=== PATIENT | male | born 1990 | race Caucasian/White ===

== ENCOUNTER 2018-03-25 01:51 | Emergency (ER) | payer SELFPAY ==
--- NOTE | 2018-03-25 01:51 | DT_ITS ---
This patient was seen during an EMR downtime March 24, 2018 - March 31, 2018. This patient may have a combination of paper and electronic documentation or all paper documentation. All documentation is viewable within the e-chart portion of [facility] for each patient visit.
== END 2018-03-25 03:31 | disposition home or self-care (01) ==
LOC: ED 03-26 16:37
PROVIDERS: Emergency Provider Emergency Medicine
DX: T40.1X1A Poisoning by heroin, accidental (unintentional), initial encounter (principal); Y92.9 Unspecified place or not applicable; F17.210 Nicotine dependence, cigarettes, uncomplicated; F12.90 Cannabis use, unspecified, uncomplicated
CPT/HCPCS: 36415; 96372; 99283; J7030; A4216; J2405

== ENCOUNTER 2018-10-17 01:29 | Emergency (ER) | payer MEDICAID, SELFPAY ==
[2018-10-17 01:31] VITALS: BP 149/75; PULSE 91; RESP 16; TEMP 36.9; O2SAT 98; BMI 24.5
--- NOTE | 2018-10-17 01:57 | US_ITS ---
HISTORY: RIGHT TESTICULAR SWELLING AND PAINRIGHT GROIN PAIN TECHNIQUE: Realtime ultrasound of the testicles was performed with grayscale, Color Doppler and spectral Doppler analysis. COMPARISON: None FINDINGS: The right and left testicles show normal size and echogenicity. Bilateral testicular blood flow without torsion. The right testicle measures approximately 4 x 3.2 x 2.8 cm the left testicle measures 3.8 x 2.7 x 2.3 cm. Small right-sided hydrocele. The right epididymal tail appears enlarged and shows asymmetric vascular flow and apparent hyperemia suspicious for epididymitis. The right and left epididymal head regions are not enlarged. Moderate left varicocele with dilated veins measuring up to 4 mm in diameter with Valsalva. Bilateral mild scrotal skin thickening measuring 5 mm in diameter. The right inguinal canal and spermatic cord region shows asymmetric increased vascularity with possible hyperemia but nonspecific. No definite inguinal hernia. US/Testicular with Arterial Flow IMPRESSION: 1. Normal testicles. No testicular torsion. 2. Right epididymal tail hyperemia and enlargement suspicious for epididymitis. Small right hydrocele. 3. Moderate left varicocele. 4. Bilateral mild scrotal skin thickening/edema. at 0426 Reported and signed by: Ralph Martinez MD Electronically Signed: Ralph Martinez, at 4:25 EST Tel , Service support ,
[2018-10-17] MEDS: Naproxen 500 MG Tablet PO (02:13)
[2018-10-17] MEDS: Azithromycin 250 MG Tablet 1000 MG PO (02:13)
[2018-10-17] MEDS: Ceftriaxone 500 MG Vial 250 MG IM (02:14)
[2018-10-17 02:26] LABS: Mucous, Urine 0 SEEN /hpf (<or=2+); Squamous Epithelial Cells - UA 0 SEEN /hpf (0-5)
[2018-10-17 02:37] LABS: Color, Urine Straw (Yellow); Glucose, Dipstick Normal (Normal); Ketone-Dipstick Negative (Negative); Leukocyte Esterase-Dipstick 500 /ul (Negative); Nitrite-Dipstick Negative (Negative); Occult Blood-Urine 50 /ul (Negative); Protein-Dipstick 30 mg/dl (Negative); Specific Gravity, Urine 1.005 (1.002-1.030); Urine Bilirubin Dipstick Negative (Negative); Urine Clarity Sl. Cloudy (Clear); Urine Urobilinogen Normal (Normal)
[2018-10-17 02:46] LABS: Bacteria RARE /hpf (None Seen); Red Blood Cells-Urine 0-5 SEEN /hpf (0-5); White Blood Cells 50-100 SEEN /hpf (0-5)
--- NOTE | 2018-10-17 03:34 | ED.VIS.GEN ---
History of Present Illness Chief Complaint: Complaint Informant: Patient Onset: Today Context: Gradual Onset Timing: Continuous Quality: pain/ache Location: R groin Current Severity: Severe Maximum Severity: Severe Worsened by: manipulation of right testicle, sexual intercourse JPTA Relieved by: nothing Associated Symptoms: no urinary sx. n/v x 1 BANKING CONSULTANT. Narrative: Patient had gradual onset of right testicular pain after initially feeling discomfort in his right groin earlier today. It suddenly got worse upon engaging in intercourse. The pain does not radiate into his back. His right testicle/scrotum is red and swollen. He has been obvious with his significant other, and neither has a history of GC or chlamydia that they know of. He denies any systemic symptoms other than the nausea/vomiting. Past Medical History - Allergies and Home Meds Allergies/Adverse Reactions: Allergies No Known Allergies Allergy (Verified 10/17/18 01:31) Primary Care Physician: Care Physician,No Primary [Primary Care Provider] - Past Medical History: None Lives: Spouse/ Significant Other Smoking Status: Current every day smoker Review of Systems General: Denies: Chills, Fever Respiratory: Denies: Dyspnea, Cough Gastrointestinal: Reports: Abdominal pain, Nausea, Vomiting. Denies: Diarrhea, Melena, Hematochezia Genitourinary: Reports: - - Right testicular pain/swelling/redness. Denies: Dysuria, Hematuria, Frequency Musculoskeletal: Denies: Neck pain, Back pain Skin: Denies: Rash, Abrasions, Wounds Neurological: Denies: Headache, Weakness, Numbness Physical Exam Vital Signs/Narrative: Vital Signs Temp Pulse Resp BP Pulse Ox 10/17/18 01:31 98.4 F 91 16 149/75 H 98 Inital Vital Signs reviewed: Yes General: Well nourished, Well developed, - - NAD Head: Normocephalic, Atraumatic Eyes: Perrl, EOMI ENT: Moist mucous membranes, No rhinorrhea Abdomen: Soft, Nondistended, Normal bowel sounds, Tender - Mild right lower quadrant into right inguinal area. No hernia palpable.. Negative for: Guarding, Rebound tenderness : Swollen, diffusely tender right testicle. Intact cremasterics. Back: Nontender, Normal Inspection. Negative for: CVA tenderness Extremities: Nontender, No edema Skin: Normal color, No rash, - - Right hemiscrotum erythematous Neurological: Alert, Oriented x3, Cranial nerves II-XII grossly intact, Normal Strength, Normal Sensation Psychological: Normal affect Diagnostic/Tx/Re-eval Impressions Testicular Ultrasound 10/17/18 01:57 IMPRESSION: 1. Normal testicles. No testicular torsion. 2. Right epididymal tail hyperemia and enlargement suspicious for epididymitis. Small right hydrocele. 3. Moderate left varicocele. 4. Bilateral mild scrotal skin thickening/edema. at 0426 Reported and signed by: Ralph Martinez MD Electronically Signed: Ralph Martinez, at 4:25 EST Tel , Service support , 10/17/18 01:57 US Testicular [Testicular with Arterial Flow] [US] Stat Laboratory Results 10/17/18 10/17/18 02:20 02:20 Urine Color Straw Urine Clarity Sl. Cloudy Urine pH 7.0 Ur Specific [place] 1.005 Urine Protein 30 H Urine Glucose (UA) Normal Urine Ketones Negative Urine Occult Blood 50 H Urine Nitrite Negative Urine Bilirubin Negative Urine Urobilinogen Normal Ur Leukocyte Esterase 500 H Urine RBC 0-5 SEEN Urine WBC 50-100 SEEN Ur Squamous Epith Cells 0 SEEN Urine Bacteria RARE Urine Mucus 0 SEEN Chlam trachomat DNA PCR POSITIVE H N.gonorrhoeae DNA (PCR) Negative - Medical Decision Making Given the acute onset of pain and the feeling of a pop in his right testicle, I initially attempted to detorse the right testicle using the usual open-book technique, although the lie appeared in normal and symmetric. This did not result in any relief, and actually was more painful. Therefore, ultrasound was called in emergently to obtain an ultrasound to rule out torsion. His urinalysis shows pyuria, GC and chlamydia were sent and he was treated empirically for them with IM Rocephin to 50 mg and azithromycin 1 g orally. Ultrasound returned showing a normal testicle and no evidence of torsion, however he has right epididymitis. Also seen incidentally R hydroceles on both sides, small on the right, moderate on the left. I do not think he is having symptoms from these. Incidentally, the patient was here long enough that his GC and Chlamydia testing came back showing that he is positive for chlamydia and negative for gonorrhea. I discussed this with him, will additionally prescribe doxycycline since a azithromycin may not cover for epididymitis. He and his significant other both expressed concern. I reassured him that treatment should result in a negative carrier state, but that she should also get tested and I offered for her to sign in and have both testing and treatment here. She declines at this time. ED Disposition - Plan for ED Patient: Disposition: Home or Assisted Living Chief Complaint: Complaint Diagnosis: Epididymitis, right, Chlamydia Instructions: Chlamydia, ED Epididymitis Prescriptions: Doxycycline Hyclate 100 mg PO BID #14 cap Referrals: Lopez Zuniga, [STAFF PHYSICIAN] - 3-5 Days if not improving
--- NOTE | 2018-10-17 03:38 | ED.DCSUM_ITS ---
History of Present Illness Chief Complaint: Complaint Informant: Patient Onset: Today Context: Gradual Onset Timing: Continuous Quality: pain/ache Location: R groin Current Severity: Severe Maximum Severity: Severe Worsened by: manipulation of right testicle, sexual intercourse JPTA Relieved by: nothing Associated Symptoms: no urinary sx. n/v x 1 OFFICE MACHINE TECHNICIAN. Narrative: Patient had gradual onset of right testicular pain after initially feeling di scomfort in his right groin earlier today. It suddenly got worse upon engaging in intercourse. The pain does not radiate into his back. His right testicle/scrotum is red and swollen. He has been obvious with his significant other, and neither has a history of GC or chlamydia that they know of. He denies any systemic symptoms other than the nausea/vomiting. Past Medical History - Allergies and Home Meds Allergies/Adverse Reactions: Allergies No Known Allergies Allergy (Verified 10/17/18 01:31) Primary Care Physician: Care Physician,No Primary [Primary Care Provider] - Past Medical History: None Lives: Spouse/ Significant Other Smoking Status: Current every day smoker Review of Systems General: Denies: Chills, Fever Respiratory: Denies: Dyspnea, Cough Gastrointestinal: Reports: Abdominal pain, Nausea, Vomiting. Denies: Diarrhea, Melena, Hematochezia Genitourinary: Reports: - - Right testicular pain/swelling/redness. Denies: Dysuria, Hematuria, Frequency Musculoskeletal: Denies: Neck pain, Back pain Skin: Denies: Rash, Abrasions, Wounds Neurological: Denies: Headache, Weakness, Numbness Physical Exam Vital Signs/Narrative: Vital Signs Temp Pulse Resp BP Pulse Ox 10/17/18 01:31 98.4 F 91 16 149/75 H 98 Inital Vital Signs reviewed: Yes General: Well nourished, Well developed, - - NAD Head: Normocephalic, Atraumatic Eyes: Perrl, EOMI ENT: Moist mucous membranes, No rhinorrhea Abdomen: Soft, Nondistended, Normal bowel sounds, Tender - Mild right lower quadrant into right inguinal area. No hernia palpable.. Negative for: Guarding, Rebound tenderness : Swollen, diffusely tender right testicle. Intact cremasterics. Back: Nontender, Normal Inspection. Negative for: CVA tenderness Extremities: Nontender, No edema Skin: Normal color, No rash, - - Right hemiscrotum erythematous Neurological: Alert, Oriented x3, Cranial nerves II-XII grossly intact, Normal Strength, Normal Sensation Psychological: Normal affect Diagnostic/Tx/Re-eval Impressions Testicular Ultrasound 10/17/18 01:57 IMPRESSION: 1. Normal testicles. No testicular torsion. 2. Right epididymal tail hyperemia and enlargement suspicious for epididymitis. Small right hydrocele. 3. Moderate left varicocele. 4. Bilateral mild scrotal skin thickening/edema. at 0426 Reported and signed by: Ralph Martinez MD Electronically Signed: Ralph Martinez, at 4:25 EST Tel , Service support , 10/17/18 01:57 US Testicular [Testicular with Arterial Flow] [US] Stat Laboratory Results 10/17/18 10/17/18 02:20 02:20 Urine Color Straw Urine Clarity Sl. Cloudy Urine pH 7.0 Ur Specific [place] 1.005 Urine Protein 30 H Urine Glucose (UA) Normal Urine Ketones Negative Urine Occult Blood 50 H Urine Nitrite Negative Urine Bilirubin Negative Urine Urobilinogen Normal Ur Leukocyte Esterase 500 H Urine RBC 0-5 SEEN Urine WBC 50-100 SEEN Ur Squamous Epith Cells 0 SEEN Urine Bacteria RARE Urine Mucus 0 SEEN Chlam trachomat DNA PCR POSITIVE H N.gonorrhoeae DNA (PCR) Negative - Medical Decision Making Given the acute onset of pain and the feeling of a pop in his right testicle, I initially attempted to detorse the right testicle using the usual open-book technique, although the lie appeared in normal and symmetric. This did not result in any relief, and actually was more painful. Therefore, ultrasound was called in emergently to obtain an ultrasound to rule out torsion. His urinalysis shows pyuria, GC and chlamydia were sent and he was treated empirically for them with IM Rocephin to 50 mg and azithromycin 1 g orally. Ultrasound returned showing a normal testicle and no evidence of torsion, however he has right epididymitis. Also seen incidentally R hydroceles on both sides, small on the right, moderate on the left. I do not think he is having symptoms from these. Incidentally, the patient was here long enough that his GC and Chlamydia testing came back showing that he is positive for chlamydia and negative for gonorrhea. I discussed this with him, will additionally prescribe doxycycline since a azithromycin may not cover for epididymitis. He and his significant other both expressed concern. I reassured him that treatment should result in a negative carrier state, but that she should also get tested and I offered for her to sign in and have both testing and treatment here. She declines at this time. ED Disposition - Plan for ED Patient: Disposition: Home or Assisted Living Chief Complaint: Complaint Diagnosis: Epididymitis, right, Chlamydia Instructions: Chlamydia, ED Epididymitis Prescriptions: Doxycycline Hyclate 100 mg PO BID #14 cap Referrals: Lopez Zuniga, [STAFF PHYSICIAN] - 3-5 Days if not improving
[2018-10-17 04:07] LABS: Neisserai gonorrhoeae by PCR Negative (Negative); Probe Check PASS
[2018-10-17 04:08] LABS: Chlamydia Trachomatis by PCR POSITIVE (Negative); Sample Adequacy Control PASS; Specimen Processing Control PASS
--- NOTE | 2018-10-17 04:09 | ED.RN ---
DR MORAN AWARE OF POSITIVE CHLAMYDIA RESULTS.
[2018-10-17 04:13] VITALS: RESP 16
[2018-10-17 05:01] VITALS: BP 129/76; PULSE 94; RESP 18; O2SAT 96
== END 2018-10-17 05:02 | disposition home or self-care (01) ==
PROVIDERS: Emergency Provider Emergency Medicine
DX: A56.19 Other chlamydial genitourinary infection (principal); I86.1 Scrotal varices; N43.3 Hydrocele, unspecified; F17.200 Nicotine dependence, unspecified, uncomplicated
CPT/HCPCS: 76870; 81001; 87086; 87491; 87591; 93976; 96372; 99283

== ENCOUNTER 2019-01-02 22:32 | Observation (INO) | payer MEDICAID, SELFPAY ==
[2019-01-02 22:34] VITALS: BP 128/67; PULSE 81; RESP 16; TEMP 36.7; O2SAT 97; BMI 28.5
[2019-01-02 23:16] VITALS: RESP 18
--- NOTE | 2019-01-02 23:47 | HP.PCM_ITS ---
Problem List (1) Opiate withdrawal Status: Acute (2) Heroin abuse Status: Chronic (3) Fentanyl dependence Status: Chronic (4) Methamphetamine abuse Status: Chronic (5) IVDU (intravenous drug user) Status: Chronic (6) Tobacco use Status: Chronic (7) Anxiety and depression Status: Chronic History of Present Illness Date of Admission: 01/02/19 Chief Complaint: Acute opiate withdrawal The patient is a 28 y/o M w/ PMHx: Tobacco use, Anxiety and Depression, Chronic Methamphetamine usage (1/2 gm q week, most recent 2 days prior), Heroine IV/snorted usage (1/2 gm daily, most recent 6 am 01/02/19), Fentanyl usage (1/2 gm daily, most recent 6 am 01/02/19) who presents to the [facility] ED on 01/02/19 w/ noted opiate withdrawal onset starting evening of day of presentation following last dose 01/02/19 ~ 6 am of both heroine and fentanyl with abdominal pain/cramping, generalized body aches and pains, rhinorrhea, piloerection, fatigue, restless leg, sweating, yawning. Patient interested in attaining clean status and notes that he has never been admitted for acute opiate withdrawal or had treatment at a rehab facility. He did present with another individual, both interested in obtaining clean status, discussed at length that patient more likely to have successful outcome if it does not seek this individual out and noted to him that they would be on different floor secondary to this concern to which patient was amenable. Both the patient and his friend denied ever using drugs together. Work-up in the ED included T 98, heart rate 81, BP 120/67, respiratory rate 16, 97% on room air, no labs or imaging were obtained prior to ED requested evaluation patient for admission for acute opiate withdrawal. Past Medical History Past Medical History (Chronic Problems): Chronic Problems Heroin abuse (Chronic) Fentanyl dependence (Chronic) Methamphetamine abuse (Chronic) IVDU (intravenous drug user) (Chronic) Tobacco use (Chronic) Anxiety and depression (Chronic) Allergies No Known Allergies Allergy (Verified 10/17/18 01:31) Home Medications: Ambulatory Orders Medication Instructions Recorded NK 01/02/19 Surgical History: - - Patient denies any prior surgical history. Psychiatric History: Anxiety, Depression Lives: With Family Smoking Status: Current every day smoker - 1 ppd cigarette tobacco usage. Tobacco Use: Cigarettes Alcohol: Occasional Drugs: Heroin, - - Methamphetamine, fentanyl. - *Family History Maternal History Items: - - Patient denies any market maternal or paternal family history including heart disease, diabetes, cancer. Paternal History Items: - - Patient denies any market maternal or paternal family history including heart disease, diabetes, cancer. Review of Systems Constitutional: Reports: Chills, Malaise, Weakness, Fatigue. Denies: Anorexia, Fever, Weight Change HEENT: Reports: Nasal Congestion, Sinus Congestion, Sinus Drainage. Denies: Head Aches Cardiovascular: Denies: Chest Pain, Palpitations Respiratory: Denies: Cough, Shortness of breath at rest, Sputum production Gastrointestinal: Reports: Abdominal Pain, Nausea. Denies: Vomiting Genitourinary: Denies: Dysuria Musculoskeletal: Reports: Joint Pain, Muscle pain. Denies: Joint Tenderness Skin: Reports: Skin Changes. Denies: Rash, Wounds Neurological: Denies: Numbness, Tingling, Focal weakness Psychiatric: Reports: Anxiety, Depression. Denies: Homicidal Ideations, Suicidal Ideations Hematologic/ Lymphatic: Denies: Easy Bruising, Easy Bleeding VTE Information - Inpt Only VTE Present on Admission: No VTE Mechan Device Prophylaxis: None VTE Pharm Prophylaxis ordered?: No Reason prophylaxis not ordered:: Treatment Not Indicated Patient Problems: Active and Suspected Problems Opioid dependence (Acute) Opiate withdrawal (Acute) Subjective: Seated upright in the ED bed, fatigued appearance, yawning frequently, notes restlessness. Objective: Physical Examination: General: awake, alert, oriented x 3 and cooperative, seated upright in ED bed, mildly restless, mildly agitated, yelling frequently. Skin: normal color, turgor, no icterus, cyanosis except noted bilateral antecubital fossa track perea, noninfected appearing. HEENT: AT/NC, EOMI, PERRLA, dry MM, yawning frequently, no carotid bruits or JVD noted. Lungs: CTA bilaterally, moderate effort, mild decrease BL bases, no rales, ronchi or wheezing. Heart: Regular rate and rhythm; no gallop, rub audible. Abdomen: soft, NTTP, ND, normal BS, no HSM. Extremities: no cyanosis, clubbing, or edema. Neurological: patient awake, alert, oriented x 3; cognitive function intact; pupils equally reactive to light and accomodation; cranial nerves II-XII grossly normal, moving all 4 extremities, no focal deficits, strength mildly to moderately globally decreased secondary to acute withdrawal. Psychiatric: affect appears mildly agitated and restless, no acute evidence of depressive or anxiety feelings. - Physical Exam Vital Signs Temp Pulse Resp BP Pulse Ox 98.0 F 81 18 128/67 H 97 01/02/19 22:34 01/02/19 22:34 01/02/19 23:16 01/02/19 22:34 01/02/19 22:34 Oxygen Delivery Method Room Air Weight: 216 lb 0.848 oz Body Mass Index (BMI) 28.5 Finger Stick Blood Glucose 80 Assessment/Plan All Active Problems Opioid dependence (Acute) Opiate withdrawal (Acute) The patient is a 28 y/o M w/ PMHx: Tobacco use, Anxiety and Depression, Chronic Methamphetamine usage (1/2 gm q week, most recent 2 days prior), Heroine IV/snorted usage (1/2 gm daily, most recent 6 am 01/02/19), Fentanyl usage (1/2 gm daily, most recent 6 am 01/02/19) who presents to the [facility] ED on 01/02/19 w/ noted opiate withdrawal. (1) Acute Opiate Withdrawal: Will admit to [facility], obtain routine labs including CBC, CMP, urine for drug screen, urinalysis, serum lipase and will initiate and continue on [facility] service protocol with tapering course of Subutex, as needed Seroquel, Librium, Sinemet, Catapres, Bentyl, Vistaril, IV fluids, IV antiemetics, Tylenol as needed for pain. Once patient clinically improved and completion of taper nearing will plan [facility] assistance for transition to next level of rehabilitation care. [facility] and CM consulted. (2) Polysubstance Abuse, IVDA Hx: Patient notes he was recently tested at the [facility] department but unclear what he was tested for, amenable to HIV and hepatitis testing at this time given history of IV drug use ongoing. Discussed concept that patient currently not candidate for hep C treatment currently as needs to be clean, sober x 6 months, documented attendance NA or AA meetings, counseling and ongoing negative drug screens. Encouraged PCP establishment and follow-up. (3) Tobacco Abuse: Encouraged cessation, inpatient consultation per RT, NR if desired. (4) Anxiety and Depression: Not on regimen, would benefit from counseling evaluation, CM/[facility] consultations requested. (5) DVT prophylaxis: SCDs, low risk. Code Visit Inpatient E&M: [id number] Init Hosp L3
[2019-01-03] VITALS (9 sets, daily range): BP systolic 106–129; BP diastolic 53–73; PULSE 58–91; RESP 14–18; TEMP 36.2–36.9; O2SAT 96–97; BMI 26.6; BMI 26.7
[2019-01-03] MEDS: LORazepam 1 MG Tablet PO (00:32)
[2019-01-03] MEDS: cloNIDine HCl 0.1 MG Tablet PO (00:32)
--- NOTE | 2019-01-03 00:34 | ED.DCSUM_ITS ---
History of Present Illness Chief Complaint: Substance Abuse Informant: Patient Narrative: Patient presenting wanting detox for opioids. He uses heroin and fentanyl, injecting and snorting, half gram per day daily for the last several months, chronic user for the past 4 years. Last use around 18 hours ago. Mild withdrawal symptoms including restlessness, shaky, and nausea. No abdominal discomfort, vomiting/dry heaving, diarrhea, sweating. No suicidal ideation. Smokes, uses occasional methamphetamine, no other substance abuse. Past Medical History - Allergies and Home Meds Allergies/Adverse Reactions: Allergies No Known Allergies Allergy (Verified 10/17/18 01:31) Primary Care Physician: Care Physician,No Primary [Primary Care Provider] - Lives: Alone Smoking Status: Current every day smoker Drugs: Heroin Review of Systems General: Reports: Malaise. Denies: Chills, Fever, Sweats Eyes: Denies: Visual changes - bilaterally, Diplopia ENT: Denies: Rhinorrhea, Sore throat Cardiovascular: Denies: Chest pain, Palpitations Respiratory: Denies: Dyspnea, Cough, Dyspnea on exertion Gastrointestinal: Reports: Nausea. Denies: Abdominal pain, Vomiting, Diarrhea, Melena, Hematochezia Genitourinary: Denies: Dysuria, Hematuria, Frequency Musculoskeletal: Denies: Back pain, Extremity Pain Skin: Denies: Rash, Wounds Neurological: Reports: - - Shaky. Denies: Headache, Weakness, Numbness Psych: Reports: Anxiety. Denies: Suicidal thoughts, Suicidal ideations Physical Exam Vital Signs/Narrative: Vital Signs Temp Pulse Resp BP Pulse Ox 01/02/19 23:16 18 01/02/19 22:34 98.0 F 81 16 128/67 H 97 Inital Vital Signs reviewed: Yes General: Well nourished, Well developed, No Acute Distress Head: Normocephalic, Atraumatic Eyes: Perrl, EOMI ENT: Moist mucous membranes, No rhinorrhea Neck: Supple, Nontender Cardiovascular: Regular rate, Regular rhythm, No murmurs Respiratory: No distress, CTA bilaterally, Chest nontender Abdomen: Soft, Nontender, Nondistended, Normal bowel sounds Back: Nontender, Normal Inspection Extremities: Nontender, No edema Skin: Normal color, No rash Neurological: Alert, Oriented x3, Cranial nerves II-XII grossly intact, Normal Strength, Normal Sensation Psychological: Normal Mood, - - Mildly anxious/restless Diagnostic/Tx/Re-eval - Medical Decision Making CINA score is 5. Discussed with hospitalist, who admits him to medical surgical floor for detox evaluation. I gave him Ativan and clonidine for his symptoms. ED Disposition - Plan for ED Patient: Disposition: Acute Care [facility] Diagnosis: Opioid dependence Referrals: Care Physician,No Primary [Primary Care Provider] -
[2019-01-03] MEDS: Buprenorphine HCl 2 MG TAB.SUBL SL ×3 (02:31→18:35)
[2019-01-03] MEDS: chlordiazePOXIDE 25 MG Capsule PO ×6 (02:32→21:39)
[2019-01-03] MEDS: Lactated Ringers 1,000 ML 125 ML IV (02:48)
[2019-01-03 03:40] LABS: Absolute Neutrophil Count 4.1 X10^3/uL (2.0-7.7); Basophil# 0.03 X10^3/uL; Basophil% 0.4 % (0-1); Eosinophil# 0.25 X10^3/uL; Eosinophils% 3.4 % (0-5); Hematocrit 42.5 % (40-54); Lymphocyte % 32.3 % (19-41); Mean Corp Hgb Conc 32.9 g/gl (32-36); Mean Corpuscular Hgb 30.6 pg (27.0-32.0); Mean Corpuscular Volume 92.8 fL (80-94); Mean Platelet Vol. 8.8 fl (6.2-12.0); Monocyte% 9.4 % (0-10); Neutrophil # 4.05 X10^3/uL (2.7-7.7); Neutrophil % 54.4 % (47-70); Platelet Count 218 K/mm3 (150-450); RBC Distribution Width CV 12.7 % (11.6-14.6); Red Blood Count 4.58 M/mm3 (4.6-6.2); White Blood Count 7.4 K/mm3 (4.4-11.0)
[2019-01-03 03:41] LABS: POSITIVE COUNT NO; POSITIVE DIFFERENTIAL NO; POSITIVE MORPHOLOGY NO
[2019-01-03 03:44] LABS: International Normalized Ratio 1.1
[2019-01-03 03:53] LABS: AST(SGOT) 16 U/L (15-37); Alanine Aminotransfer ALT/SGPT 26 U/L (16-61); Alkaline Phosphatase 174 U/L (45-117); Amylase 39 U/L (25-115); Anion Gap 5 (5-15); BUN 19 mg/dL (7-18); BUN/Creat Ratio 17.8 RATIO (10-20); Calcium,Total 8.7 mg/dL (8.5-10.1); Chloride 107 mmol/L (98-107); Creatinine, Serum 1.07 mg/dL (0.70-1.30); EST Glomerular Filtration Rate 87 mL/min (>60); Est Glom Filt Rate - Afr Amer 105 mL/min (>60); Estimated Creatinine Clearance 111.81 ml/min; Globulin 3.1 g/dL (2.2-4.2); Glucose 113 mg/dL (74-106); Lipase 117 U/L (73-393); Potassium 3.9 mmol/L (3.5-5.1); Protein, Total 6.1 g/dL (6.4-8.2); Sodium Level 141 mmol/L (136-145)
[2019-01-03 04:47] LABS: HIV - WCH Non-Reactive (Nonreactive)
[2019-01-03] MEDS: 0.9% NaCl Peripheral Flush Adult/Peds IV (06:03)
[2019-01-03 06:28] LABS: Bacteria 0 SEEN /hpf (None Seen); Mucous, Urine 0 SEEN /hpf (<or=2+); Red Blood Cells-Urine 0 SEEN /hpf (0-5); White Blood Cells 0 SEEN /hpf (0-5)
[2019-01-03 06:32] LABS: Color, Urine Yellow (Yellow); Glucose, Dipstick 50 mg/dl (Normal); Ketone-Dipstick Negative (Negative); Leukocyte Esterase-Dipstick Negative /ul (Negative); Nitrite-Dipstick Negative (Negative); Occult Blood-Urine Negative /ul (Negative); Protein-Dipstick Negative (Negative); Specific Gravity, Urine 1.015 (1.002-1.030); Urine Bilirubin Dipstick Negative (Negative); Urine Clarity Sl. Cloudy (Clear); Urine Urobilinogen Normal (Normal)
[2019-01-03 06:54] LABS: Squamous Epithelial Cells - UA 0-5 SEEN /hpf (0-5)
[2019-01-03 07:02] LABS: Amphetamine Urine VISTA POSITIVE (<1000 ng/mL); Barbiturate Urine VISTA NEGATIVE (< 200 ng/mL); Benzodiazepine Urine VISTA NEGATIVE (< 200 ng/mL); Cocaine Urine VISTA NEGATIVE (< 300 ng/mL); Ecstacy Urine VISTA NEGATIVE (< 500 ng/mL); Methadone Urine VISTA NEGATIVE (< 300 ng/mL); PCP Urine VISTA NEGATIVE (< 25 ng/mL); THC Urine VISTA NEGATIVE (< 50 ng/mL); Vista UDS pH Range 6
--- NOTE | 2019-01-03 10:08 | PCM.PN.HOSP ---
Patient Problems: Active and Suspected Problems Opioid dependence (Acute) Opiate withdrawal (Acute) Subjective: Patient seen and examined. He is been managed for opiate withdrawal on account of opiate abuse. He has no complaints this morning. Review of systems otherwise negative. Labs and vitals reviewed. Vitals/I&O's: Vital Signs Temp Pulse Resp BP Pulse Ox 98.1 F 74 14 107/53 L 97 01/03/19 05:56 01/03/19 05:56 01/03/19 05:56 01/03/19 05:56 01/02/19 22:34 Oxygen Delivery Method Room Air Weight: 201 lb 4.513 oz Body Mass Index (BMI) 26.6 Finger Stick Blood Glucose 80 Intake and Output for Last 24 Hours 01/01/19 01/02/19 01/03/19 23:59 23:59 23:59 Intake Total 985 / 985 Balance 985 / 985 General: Alert, Oriented x3, Cooperative HEENT: Atraumatic, PERRLA, EOMI, Normocephalic Oral: Moist Mucosa Neck: Supple, No JVD, Negative Carotid Bruits Lungs: Clear to auscultation, Normal air movement, No rhonchi, No wheeze, No rales Cardiovascular: Regular rate, Regular Rhythm, Normal S1, Normal S2, No murmurs Abdomen: Bowel Sounds Present, Soft, Non Tender, Non-Distended, No Hepato-splenomegaly Extremities: No clubbing, No cyanosis, No edema, Capillary Refill Less than 3 Seconds Skin: No rashes, No breakdown Musculoskeletal: No Tenderness to Palpation of Joints or Extremities Lymphatic: No Cervical, Supraclavicular, or Inguinal Adenopathy Neurological: Cranial nerves II-XII grossly intact, Neuro grossly intact, Motor Exam 5/5 strength throughout Psych/Mental Status: Normal Affect, Appropriate, Alert and oriented to time, place, person, mood and affect Laboratory Results 01/03/19 03:14: WBC 7.4, RBC 4.58 L, Hgb 14.0, Hct 42.5, MCV 92.8, MCH 30.6, MCHC 32.9, RDW 12.7, RDW Differential 42.0, Plt Count 218, MPV 8.8, Immature Gran % (Auto) 0.100, Neut % (Auto) 54.4, Lymph % (Auto) 32.3, [place] % (Auto) 9.4, Eos % (Auto) 3.4, Baso % (Auto) 0.4, Absolute Neuts (auto) 4.1, Absolute Lymphs (auto) 2.40, Total Counted Not Reportable 01/03/19 03:14: PT 14.0, INR 1.1 01/03/19 03:14: Sodium 141, Potassium 3.9, Chloride 107, Carbon Dioxide 29.0, Anion Gap 5, BUN 19 H, Creatinine 1.07, Estim Creat Clear Calc 111.81, Est GFR (MDRD) Af Amer 105, Est GFR (MDRD) Non-Af 87, BUN/Creatinine Ratio 17.8, Glucose 113 H, Calcium 8.7, Total Bilirubin 0.30, AST 16, ALT 26, Alkaline Phosphatase 174 H, Total Protein 6.1 L, Albumin 3.0 L, Globulin 3.1, Albumin/Globulin Ratio 1.0, Amylase 39, Lipase 117 01/03/19 03:14: Ethyl Alcohol 5.0 01/03/19 03:14: Hepatitis A IgM Ab Pending, Hepatitis A Ab Total Pending, Hep Bs Antigen Pending, Hep B Core Total Ab Pending, Hep B Core IgM Ab Pending 01/03/19 03:14: HIV 1&2 Antibody Non-Reactive 01/03/19 06:15: Urine Opiates Screen POSITIVE H, Urine Methadone Screen NEGATIVE, Ur Barbiturates Screen NEGATIVE, Ur Phencyclidine Scrn NEGATIVE, Ur Amphetamines Screen POSITIVE H, U Methamphetamin-MDMA NEGATIVE, U Benzodiazepines Scrn NEGATIVE, Urine Cocaine Screen NEGATIVE, U Cannabinoids Screen NEGATIVE, Ur Drug Screen Comment 01/03/19 06:15: Urine Color Yellow, Urine Clarity Sl. Cloudy, Urine pH 6.0, Ur Specific [place] 1.015, Urine Protein Negative, Urine Glucose (UA) 50 H, Urine Ketones Negative, Urine Occult Blood Negative, Urine Nitrite Negative, Urine Bilirubin Negative, Urine Urobilinogen Normal, Ur Leukocyte Esterase Negative, Urine RBC 0 SEEN, Urine WBC 0 SEEN, Ur Squamous Epith Cells 0-5 SEEN, Urine Bacteria 0 SEEN, Urine Mucus 0 SEEN Current Medications Acetaminophen (Tylenol) 500 mg PO Q4H PRN PRN PRN Reason: Temp > 100.4 F Al Hydroxide/Mg Hydroxide (Mylanta Ii) 30 ml PO Q6H PRN PRN PRN Reason: dyspesia Bisacodyl (Dulcolax) 10 mg RECTAL DAILY PRN PRN Reason: Constipation Buprenorphine HCl (Buprenorphine Hcl) 4 mg SL Q8H [facility]; Taper Stop: 01/06/19 06:29 Last Admin: 01/03/19 02:31 Dose: 4 mg Chlordiazepoxide (Librium) 25 mg PO Q6H PRN PRN PRN Reason: Moderate-Severe Anxiety Chlordiazepoxide (Librium) 25 mg PO Q4H [facility] Stop: 01/03/19 21:41 Last Admin: 01/03/19 06:02 Dose: 25 mg Clonidine (Catapres) 0.1 mg PO Q2H PRN PRN PRN Reason: Hot/Cold Sweats or Anxiety Dicyclomine HCl (Bentyl) 20 mg PO Q6H PRN PRN PRN Reason: Abdomnial Discomfort Hydroxyzine Pamoate (Vistaril Pamoate Capsule) 50 mg PO Q6H PRN PRN PRN Reason: Mild Anxiety Ibuprofen (Motrin) 600 mg PO Q8H PRN PRN PRN Reason: Mild-Moderate Pain (1-5/10) Loperamide HCl (Imodium) 2 - 4 mg PO UD PRN PRN Reason: LOOSE STOOLS Magnesium Hydroxide (Milk Of Magnesia) 30 ml PO DAILY PRN PRN PRN Reason: Constipation Methocarbamol (Methocarbamol) 750 mg PO Q6H PRN PRN PRN Reason: Muscle Aches Nicotine (Nicoderm Cq (Pbkc)) 21 mg TRANSDERM. DAILY [facility] Ondansetron HCl (Zofran Odt) 4 mg PO Q6H PRN PRN PRN Reason: NAUSEA Pramipexole Dihydrochloride (Mirapex) 0.25 mg PO Q12H PRN PRN PRN Reason: Restless Legs Quetiapine Fumarate (Seroquel) 25 mg PO Q6H PRN PRN PRN Reason: agitation, anxiety Senna (Senokot) 1 tablet PO QHS PRN PRN Reason: Constipation Sodium Chloride () 5 - 15 ml IV UD PRN PRN Reason: SALINE FLUSH Last Admin: 01/03/19 06:03 Dose: 10 ml Trazodone HCl (Desyrel) 50 mg PO QHS [facility] Medical Necessity - Tobacco Use Smoking Status: Current every day smoker Tobacco Use: Cigarettes Assessment/Plan All Active Problems Opioid dependence (Acute) Opiate withdrawal (Acute) 1. Acute opiate withdrawal On outpatient withdrawal protocol with buprenorphine as per [facility] protocol. U tox was positive for opiates and amphetamines. will monitor CINA score Hepatitis panel pending. HIV 1 and 2 antibodies were non-reactive 2 Nicotine abuse: encourage cessation. Nicotine patch prn. 3. Anxiety and depression: Currently not on any meds. To follow-up with psychiatrist and PCP. DVT prophylaxis: SCDs. Code Visit Inpatient E&M: 65811 Subs Hosp L2
--- NOTE | 2019-01-03 10:13 | PN_ITS ---
Patient Problems: Active and Suspected Problems Opioid dependence (Acute) Opiate withdrawal (Acute) Subjective: Patient seen and examined. He is been managed for opiate withdrawal on account of opiate abuse. He has no complaints this morning. Review of systems otherwise negative. Labs and vitals reviewed. Vitals/I&O's: Vital Signs Temp Pulse Resp BP Pulse Ox 98.1 F 74 14 107/53 L 97 01/03/19 05:56 01/03/19 05:56 01/03/19 05:56 01/03/19 05:56 01/02/19 22:34 Oxygen Delivery Method Room Air Weight: 201 lb 4.513 oz Body Mass Index (BMI) 26.6 Finger Stick Blood Glucose 80 Intake and Output for Last 24 Hours 01/01/19 01/02/19 01/03/19 23:59 23:59 23:59 Intake Total 985 / 985 Balance 985 / 985 General: Alert, Oriented x3, Cooperative HEENT: Atraumatic, PERRLA, EOMI, Normocephalic Oral: Moist Mucosa Neck: Supple, No JVD, Negative Carotid Bruits Lungs: Clear to auscultation, Normal air movement, No rhonchi, No wheeze, No rales Cardiovascular: Regular rate, Regular Rhythm, Normal S1, Normal S2, No murmurs Abdomen: Bowel Sounds Present, Soft, Non Tender, Non-Distended, No Hepato- splenomegaly Extremities: No clubbing, No cyanosis, No edema, Capillary Refill Less than 3 Seconds Skin: No rashes, No breakdown Musculoskeletal: No Tenderness to Palpation of Joints or Extremities Lymphatic: No Cervical, Supraclavicular, or Inguinal Adenopathy Neurological: Cranial nerves II-XII grossly intact, Neuro grossly intact, Motor Exam 5/5 strength throughout Psych/Mental Status: Normal Affect, Appropriate, Alert and oriented to time, place, person, mood and affect Laboratory Results 01/03/19 03:14: WBC 7.4, RBC 4.58 L, Hgb 14.0, Hct 42.5, MCV 92.8, MCH 30.6, MCHC 32.9, RDW 12.7, RDW Differential 42.0, Plt Count 218, MPV 8.8, Immature Gran % (Auto) 0.100, Neut % (Auto) 54.4, Lymph % (Auto) 32.3, [place] % (Auto) 9.4, Eos % (Auto) 3.4, Baso % (Auto) 0.4, Absolute Neuts (auto) 4.1, Absolute Lymphs (auto) 2.40, Total Counted Not Reportable 01/03/19 03:14: PT 14.0, INR 1.1 01/03/19 03:14: Sodium 141, Potassium 3.9, Chloride 107, Carbon Dioxide 29.0, Anion Gap 5, BUN 19 H, Creatinine 1.07, Estim Creat Clear Calc 111.81, Est GFR (MDRD) Af Amer 105, Est GFR (MDRD) Non-Af 87, BUN/Creatinine Ratio 17.8, Glucose 113 H, Calcium 8.7, Total Bilirubin 0.30, AST 16, ALT 26, Alkaline Phosphatase 174 H, Total Protein 6.1 L, Albumin 3.0 L, Globulin 3.1, Albumin/Globulin Ratio 1.0, Amylase 39, Lipase 117 01/03/19 03:14: Ethyl Alcohol 5.0 01/03/19 03:14: Hepatitis A IgM Ab Pending, Hepatitis A Ab Total Pending, Hep Bs Antigen Pending, Hep B Core Total Ab Pending, Hep B Core IgM Ab Pending 01/03/19 03:14: HIV 1&2 Antibody Non-Reactive 01/03/19 06:15: Urine Opiates Screen POSITIVE H, Urine Methadone Screen NEGATIVE, Ur Barbiturates Screen NEGATIVE, Ur Phencyclidine Scrn NEGATIVE, Ur Amphetamines Screen POSITIVE H, U Methamphetamin-MDMA NEGATIVE, U Benzodiazepines Scrn NEGATIVE, Urine Cocaine Screen NEGATIVE, U Cannabinoids Screen NEGATIVE, Ur Drug Screen Comment 01/03/19 06:15: Urine Color Yellow, Urine Clarity Sl. Cloudy, Urine pH 6.0, Ur Specific [place] 1.015, Urine Protein Negative, Urine Glucose (UA) 50 H, Urine Ketones Negative, Urine Occult Blood Negative, Urine Nitrite Negative, Urine Bilirubin Negative, Urine Urobilinogen Normal, Ur Leukocyte Esterase Negative, Urine RBC 0 SEEN, Urine WBC 0 SEEN, Ur Squamous Epith Cells 0-5 SEEN, Urine Bacteria 0 SEEN, Urine Mucus 0 SEEN Current Medications Acetaminophen (Tylenol) 500 mg PO Q4H PRN PRN PRN Reason: Temp > 100.4 F Al Hydroxide/Mg Hydroxide (Mylanta Ii) 30 ml PO Q6H PRN PRN PRN Reason: dyspesia Bisacodyl (Dulcolax) 10 mg RECTAL DAILY PRN PRN Reason: Constipation Buprenorphine HCl (Buprenorphine Hcl) 4 mg SL Q8H [facility]; Taper Stop: 01/06/19 06:29 Last Admin: 01/03/19 02:31 Dose: 4 mg Chlordiazepoxide (Librium) 25 mg PO Q6H PRN PRN PRN Reason: Moderate-Severe Anxiety Chlordiazepoxide (Librium) 25 mg PO Q4H [facility] Stop: 01/03/19 21:41 Last Admin: 01/03/19 06:02 Dose: 25 mg Clonidine (Catapres) 0.1 mg PO Q2H PRN PRN PRN Reason: Hot/Cold Sweats or Anxiety Dicyclomine HCl (Bentyl) 20 mg PO Q6H PRN PRN PRN Reason: Abdomnial Discomfort Hydroxyzine Pamoate (Vistaril Pamoate Capsule) 50 mg PO Q6H PRN PRN PRN Reason: Mild Anxiety Ibuprofen (Motrin) 600 mg PO Q8H PRN PRN PRN Reason: Mild-Moderate Pain (1-5/10) Loperamide HCl (Imodium) 2 - 4 mg PO UD PRN PRN Reason: LOOSE STOOLS Magnesium Hydroxide (Milk Of Magnesia) 30 ml PO DAILY PRN PRN PRN Reason: Constipation Methocarbamol (Methocarbamol) 750 mg PO Q6H PRN PRN PRN Reason: Muscle Aches Nicotine (Nicoderm Cq (Pbkc)) 21 mg TRANSDERM. DAILY [facility] Ondansetron HCl (Zofran Odt) 4 mg PO Q6H PRN PRN PRN Reason: NAUSEA Pramipexole Dihydrochloride (Mirapex) 0.25 mg PO Q12H PRN PRN PRN Reason: Restless Legs Quetiapine Fumarate (Seroquel) 25 mg PO Q6H PRN PRN PRN Reason: agitation, anxiety Senna (Senokot) 1 tablet PO QHS PRN PRN Reason: Constipation Sodium Chloride () 5 - 15 ml IV UD PRN PRN Reason: SALINE FLUSH Last Admin: 01/03/19 06:03 Dose: 10 ml Trazodone HCl (Desyrel) 50 mg PO QHS [facility] Medical Necessity - Tobacco Use Smoking Status: Current every day smoker Tobacco Use: Cigarettes Assessment/Plan All Active Problems Opioid dependence (Acute) Opiate withdrawal (Acute) 1. Acute opiate withdrawal * On outpatient withdrawal protocol with buprenorphine as per [facility] protocol. * U tox was positive for opiates and amphetamines. * will monitor CINA score * Hepatitis panel pending. * HIV 1 and 2 antibodies were non-reactive * 2 Nicotine abuse: encourage cessation. Nicotine patch prn. 3. Anxiety and depression: Currently not on any meds. To follow-up with psychiatrist and PCP. DVT prophylaxis: SCDs. Code Visit Inpatient E&M: 52214 Subs Hosp L2
--- NOTE | 2019-01-03 12:51 | CASEMGMT ---
SW attempted to meet with patient, but he was sleeping and did not wake up to his name being called. SW left a packet of resources for treatment in his room. Rebecca LAND MSW
--- NOTE | 2019-01-03 14:37 | NURSING ---
Awakened from sleeping to medicate pt with scheduled Librium. pt denies needs for prn medications. Will continue to monitor. pt hungry for cookies. Cookies given at this time.
[2019-01-03] MEDS: QUEtiapine 25 MG Tablet PO (19:26)
[2019-01-03] MEDS: traZODone 50 MG Tablet PO (21:39)
[2019-01-04] MEDS: Buprenorphine HCl 2 MG TAB.SUBL SL ×3 (02:40→18:22)
[2019-01-04 02:41] VITALS: BP 123/59; PULSE 87; RESP 16; TEMP 36.7
[2019-01-04 02:46] VITALS: O2SAT 97
--- NOTE | 2019-01-04 09:29 | PN_ITS ---
Patient Problems: Active and Suspected Problems Opioid dependence (Acute) Opiate withdrawal (Acute) Subjective: Patient seen and examined. He has no complaints and feels well. Review of systems otherwise negative. Vitals reviewed. Vitals/I&O's: Vital Signs Temp Pulse Resp BP Pulse Ox 98.1 F 87 16 123/59 H 97 01/04/19 02:41 01/04/19 02:41 01/04/19 02:41 01/04/19 02:41 01/04/19 02:46 Oxygen Delivery Method Room Air Weight: 201 lb 4.513 oz Body Mass Index (BMI) 26.6 Finger Stick Blood Glucose 80 Intake and Output for Last 24 Hours 01/02/19 01/03/19 01/04/19 23:59 23:59 23:59 Intake Total 2350 / 2351 Balance 2350 / 2351 General: Alert, Oriented x3, Cooperative HEENT: Atraumatic, PERRLA, EOMI, Normocephalic Oral: Moist Mucosa Neck: Supple, No JVD, Negative Carotid Bruits Lungs: Clear to auscultation, Normal air movement, No rhonchi, No wheeze, No rales Cardiovascular: Regular rate, Regular Rhythm, Normal S1, Normal S2, No murmurs Abdomen: Bowel Sounds Present, Soft, Non Tender, Non-Distended, No Hepato- splenomegaly Extremities: No clubbing, No cyanosis, No edema, Capillary Refill Less than 3 Seconds Skin: No rashes, No breakdown Musculoskeletal: No Tenderness to Palpation of Joints or Extremities Lymphatic: No Cervical, Supraclavicular, or Inguinal Adenopathy Neurological: Cranial nerves II-XII grossly intact, Neuro grossly intact, Motor Exam 5/5 strength throughout Psych/Mental Status: Normal Affect, Appropriate, Alert and oriented to time, place, person, mood and affect Current Medications Acetaminophen (Tylenol) 500 mg PO Q4H PRN PRN PRN Reason: Temp > 100.4 F Al Hydroxide/Mg Hydroxide (Mylanta Ii) 30 ml PO Q6H PRN PRN PRN Reason: dyspesia Bisacodyl (Dulcolax) 10 mg RECTAL DAILY PRN PRN Reason: Constipation Buprenorphine HCl (Buprenorphine Hcl) 2 mg SL Q8H [facility]; Taper Stop: 01/06/19 06:29 Last Admin: 03/17/19 02:40 Dose: 2 mg Chlordiazepoxide (Librium) 25 mg PO Q6H PRN PRN PRN Reason: Moderate-Severe Anxiety Clonidine (Catapres) 0.1 mg PO Q2H PRN PRN PRN Reason: Hot/Cold Sweats or Anxiety Dicyclomine HCl (Bentyl) 20 mg PO Q6H PRN PRN PRN Reason: Abdomnial Discomfort Hydroxyzine Pamoate (Vistaril Pamoate Capsule) 50 mg PO Q6H PRN PRN PRN Reason: Mild Anxiety Ibuprofen (Motrin) 600 mg PO Q8H PRN PRN PRN Reason: Mild-Moderate Pain (1-5/10) Loperamide HCl (Imodium) 2 - 4 mg PO UD PRN PRN Reason: LOOSE STOOLS Magnesium Hydroxide (Milk Of Magnesia) 30 ml PO DAILY PRN PRN PRN Reason: Constipation Methocarbamol (Methocarbamol) 750 mg PO Q6H PRN PRN PRN Reason: Muscle Aches Nicotine (Nicoderm Cq (Pbkc)) 21 mg TRANSDERM. DAILY [facility] Last Admin: 01/03/19 19:18 Dose: 21 mg Ondansetron HCl (Zofran Odt) 4 mg PO Q6H PRN PRN PRN Reason: NAUSEA Pramipexole Dihydrochloride (Mirapex) 0.25 mg PO Q12H PRN PRN PRN Reason: Restless Legs Quetiapine Fumarate (Seroquel) 25 mg PO Q6H PRN PRN PRN Reason: agitation, anxiety Last Admin: 01/03/19 19:26 Dose: 25 mg Senna (Senokot) 1 tablet PO QHS PRN PRN Reason: Constipation Sodium Chloride () 5 - 15 ml IV UD PRN PRN Reason: SALINE FLUSH Last Admin: 01/03/19 06:03 Dose: 10 ml Trazodone HCl (Desyrel) 50 mg PO QHS [facility] Last Admin: 01/03/19 21:39 Dose: 50 mg Medical Necessity - Tobacco Use Smoking Status: Current every day smoker Tobacco Use: Cigarettes Assessment/Plan All Active Problems Opioid dependence (Acute) Opiate withdrawal (Acute) 1. Acute opiate withdrawal * On opiate withdrawal protocol with buprenorphine as per [facility] protocol. * U tox was positive for opiates and amphetamines. * will monitor CINA score * Hepatitis panel pending. * HIV 1 and 2 antibodies were non-reactive * 2 Nicotine abuse: encourage cessation. Nicotine patch prn. 3. Anxiety and depression: Currently not on any meds. To follow-up with psychiatrist and PCP. DVT prophylaxis: SCDs. Code Visit Inpatient E&M: 80670 Subs Hosp L2
[2019-01-04 10:50] VITALS: BP 134/75; PULSE 95; RESP 20; TEMP 36.6
[2019-01-04] MEDS: Pramipexole Di-HCl 0.25 MG Tablet PO (11:06)
[2019-01-04] MEDS: Methocarbamol 750 MG Tablet PO (11:06)
[2019-01-04] MEDS: Dicyclomine 10 MG Capsule 20 MG PO (11:06)
[2019-01-04] MEDS: hydrOXYzine PAM 25 MG Capsule 50 MG PO (11:06)
[2019-01-04 17:16] VITALS: BP 137/78; PULSE 94; RESP 18; TEMP 36.5
[2019-01-04] MEDS: Ibuprofen 600 MG Tablet PO (17:20)
[2019-01-04 21:12] VITALS: BP 113/59; PULSE 64; RESP 16; TEMP 36.7; O2SAT 97
[2019-01-04] MEDS: traZODone 50 MG Tablet PO (21:14)
[2019-01-04 21:21] VITALS: O2SAT 100
[2019-01-05 05:59] VITALS: BP 132/67; PULSE 95; RESP 16; TEMP 36.5
[2019-01-05] MEDS: Buprenorphine HCl 2 MG TAB.SUBL SL (06:01)
[2019-01-05] MEDS: cloNIDine HCl 0.1 MG Tablet PO (06:03)
--- NOTE | 2019-01-05 08:38 | NEWVISION ---
Patient reports that he has pre-arranged appointment with his current counsellor at [facility] in [place] on Saturday, January 07, 2019 at 10am.
--- NOTE | 2019-01-05 09:33 | PCM.DC ---
- Discharge Diagnoses Current Active Problems: Current Active and Chronic Problems Opioid dependence (Acute) Opiate withdrawal (Acute) Heroin abuse (Chronic) Fentanyl dependence (Chronic) Methamphetamine abuse (Chronic) IVDU (intravenous drug user) (Chronic) Tobacco use (Chronic) Anxiety and depression (Chronic) You will use the following diet at home:: No restrictions Your food should be the consistency of: Regular Your liquids should be the consistency of: Regular/Thin Discharge Activity: Return to Normal Activity Weight Bearing Status: Weight bearing as tolerated Additional Instructions: follow up with your counselor at [facility] on January 07 2019 at 10am Allergies/Adverse Reactions: Allergies No Known Allergies Allergy (Verified 10/17/18 01:31) Medications to take at Discharge NK 01/02/19 Primary Care Physician: Care Physician,No Primary [Primary Care Provider] - Test Results: Test results from this visit will be discussed in further detail at your follow-up appointment, if applicable. Please Follow Up With: Gerhard Peralta MD - [phone] When: one week to establish PCP relationship
--- NOTE | 2019-01-05 09:37 | DCINST_ITS ---
- Discharge Diagnoses Current Active Problems: Current Active and Chronic Problems Opioid dependence (Acute) Opiate withdrawal (Acute) Heroin abuse (Chronic) Fentanyl dependence (Chronic) Methamphetamine abuse (Chronic) IVDU (intravenous drug user) (Chronic) Tobacco use (Chronic) Anxiety and depression (Chronic) You will use the following diet at home:: No restrictions Your food should be the consistency of: Regular Your liquids should be the consistency of: Regular/Thin Discharge Activity: Return to Normal Activity Weight Bearing Status: Weight bearing as tolerated Additional Instructions: follow up with your counselor at [facility] on January 07 2019 at 10am Allergies/Adverse Reactions: Allergies No Known Allergies Allergy (Verified 10/17/18 01:31) Medications to take at Discharge NK 01/02/19 Primary Care Physician: Care Physician,No Primary [Primary Care Provider] - Test Results: Test results from this visit will be discussed in further detail at your follow- up appointment, if applicable. Please Follow Up With: Gerhard Peralta MD - [phone] When: one week to establish PCP relationship
--- NOTE | 2019-01-05 09:37 | PCM.DC.SUM ---
Discharge Date and Diagnosis Date of Admission: 01/02/19 Date of Discharge: 01/05/19 - Primary Discharge Diagnosis Active and Suspected Problems Opioid dependence (Acute) Opiate withdrawal (Acute) - Secondary Discharge Diagnosis Chronic Problems Heroin abuse (Chronic) Fentanyl dependence (Chronic) Methamphetamine abuse (Chronic) IVDU (intravenous drug user) (Chronic) Tobacco use (Chronic) Anxiety and depression (Chronic) Hospital Course and Treatment Consultations 01/03/19 01:40 Consult: [email or web address] Routine Consulting Provider: Consulted Physician Type:: Other * Specify below * Reason for consult:: heroine, fentanyl abuse Operations: None Procedures: None Summary of Care Provided: The patient is a 28 year old M with past medical history as listed who was admitted with a complaint of opiate withdrawal. Patient used heroin IV and fentanyl as well with his last use being on the morning of admission. He was admitted on 01/02/2019 for acute withdrawal and had abdominal pain and cramping with generalized body aches and pains with rhinorrhea and fatigue as well as restless leg and sweating. He was admitted and managed for acute patient withdrawal and placed on buprenorphine withdrawal protocol as per [employer] protocol. Patient tolerated the withdrawal protocol well and his course was uneventful. He remained stable and was discharged on 01/05/2019. He is to follow-up with his counselor at [facility] will start on January 07 at 10 AM. He is also to follow-up with his primary care doctor. He was referred to Dr. Nola Peralta to establish a primary care relationship. Patient seen and examined prior to discharge. He had no complaints and felt well. Review of systems otherwise negative. Labs and vitals reviewed. Medication reviewed and reconciled. o/e: Vital Signs Height 6 ft 0.83 in Weight: 201 lb 4.513 oz Weight in Pounds 201.3 lbs Pulse Ox 98 Temperature 97.5 F Pulse Rate 95 Respiratory Rate 18 Blood Pressure 125/71 Blood Pressure Position Semi-Fowlers [] General: Alert, Oriented x3, Cooperative HEENT: Atraumatic, PERRLA, EOMI, Normocephalic Oral: Moist Mucosa Neck: Supple, No JVD, Negative Carotid Bruits Lungs: Clear to auscultation, Normal air movement, No rhonchi, No wheeze, No rales Cardiovascular: Regular rate, Regular Rhythm, Normal S1, Normal S2, No murmurs Abdomen: Bowel Sounds Present, Soft, Non Tender, Non-Distended, No Hepato-splenomegaly Extremities: No clubbing, No cyanosis, No edema, Capillary Refill Less than 3 Seconds Skin: No rashes, No breakdown Musculoskeletal: No Tenderness to Palpation of Joints or Extremities Lymphatic: No Cervical, Supraclavicular, or Inguinal Adenopathy Neurological: Cranial nerves II-XII grossly intact, Neuro grossly intact, Motor Exam 5/5 strength throughout Psych/Mental Status: Normal Affect, Appropriate, Alert and oriented to time, place, person, mood and affect Plan as above - Physical Exam Vital Signs Temp Pulse Resp BP Pulse Ox 97.7 F L 95 16 132/67 H 100 01/05/19 05:59 01/05/19 05:59 01/05/19 05:59 01/05/19 05:59 01/04/19 21:21 Oxygen Delivery Method Room Air Weight: 201 lb 4.513 oz Body Mass Index (BMI) 26.6 Finger Stick Blood Glucose 80 Intake and Output for Last 24 Hours 01/03/19 01/04/19 01/05/19 23:59 23:59 23:59 Intake Total 2351 / 2351 1200 / 1200 300 / 300 Balance 2351 / 2351 1200 / 1200 300 / 300 Discharge Diet: No Restrictions Discharge Activity: Return to Normal Activity Weight Bearing Status: Weight bearing as tolerated Home Medications: Medications to take at Discharge NK 01/02/19 Primary Care Physician: Care Physician,No Primary [Primary Care Provider] - Please Follow Up With: Gerhard Peralta MD - [phone] When: one week to establish PCP relationship Disposition: Home Minutes spent on discharge:: 35 Patient Condition:: Stable Medical Necessity - Tobacco Use Smoking Status: Current every day smoker Tobacco Use: Cigarettes Meaningful Use Info Meaningful Use Diagnoses (Choose all that apply): None applicable Code Visit Inpatient E&M: 98203 Disch Hosp
[2019-01-05 09:39] VITALS: BP 128/66; PULSE 81; RESP 18; TEMP 36.4; O2SAT 94
[2019-01-05 10:00] VITALS: BP 128/66; PULSE 81; RESP 18; TEMP 36.4
[2019-01-05 14:00] VITALS: BP 125/71; PULSE 95; RESP 18; TEMP 36.4
[2019-01-05 14:01] VITALS: BP 125/71; PULSE 95; RESP 18; TEMP 36.4; O2SAT 98
[2019-01-05 14:15] VITALS: BP 125/71; PULSE 95; RESP 18; TEMP 36.4; O2SAT 98
[2019-01-06 12:08] LABS: HEPATITIS B SURFACE AG Confirm. indicated (Negative); Hepatitis A AB, Total Negative (Negative); Hepatitis A IgM Antibody Negative (Negative); Hepatitis B Core AB IgM Negative (Negative); Hepatitis B Core Ab Total Negative (Negative); Hepatitis C Ab <0.1 s/co ratio (0.0-0.9)
[2019-01-06 14:43] LABS: HBsAg Confirmation Positive (.); Hep B Surface Antibodies Non Reactive (.)
== END 2019-01-05 14:15 | disposition home or self-care (01) | DRG 773 ==
LOC: ED 23:39 → MS2 01-03 00:34
PROVIDERS: Admitting Provider Family Medicine; Emergency Provider Emergency Medicine; Visit Provider Student in an Organized Health Care Education/Training Program
DX: F11.23 Opioid dependence with withdrawal (principal); F17.210 Nicotine dependence, cigarettes, uncomplicated; F15.10 Other stimulant abuse, uncomplicated; F41.9 Anxiety disorder, unspecified; F32.9 Major depressive disorder, single episode, unspecified
CPT/HCPCS: 36415; 80053; 80307; 80320; 81001; 82150; 83690; 85025; 85610; 86703; 86704; 86705; 86706; 86708; 86709; 86803; 87340; 96360; 96361; 99218; 99285; J7120; A4216; G0378; G0480

== ENCOUNTER 2019-05-06 16:28 | Emergency (ER) | payer MEDICAID, SELFPAY ==
[2019-01-03 01:51] VITALS: BMI 26.6
[2019-05-06 16:29] VITALS: BP 128/90; BP 134/88; PULSE 109; PULSE 111; RESP 17; RESP 18; TEMP 36.7; O2SAT 93; O2SAT 97; BMI 26.6
--- NOTE | 2019-05-06 16:44 | RAD_ITS ---
STUDY: X-RAY - RIGHT HAND REASON FOR EXAM: Male, 28 years old. Trauma TECHNIQUE: 3 view(s) of the hand. COMPARISON: None. FINDINGS: Normal radiocarpal articulation. Normal distal radioulnar joint. Normal visualized carpal bones. Normal carpal articulations Normal carpometacarpal articulation of the thumb. Normal second through fifth carpometacarpal joints. Normal metacarpi. Normal metacarpophalangeal joint of the thumb. Normal interphalangeal joint of the thumb. Normal proximal and distal phalanges of the thumb. Normal metacarpophalangeal joints of the second through fifth fingers. Normal proximal and distal interphalangeal joints of the second through fifth fingers. Normal phalanges of the second through fifth fingers. The soft tissue structures are unremarkable. RAD/Hand Min 3 Views IMPRESSION: Normal x-ray examination of the hand. Electronically Signed: Mark Muhammad MD at 17:13 EDT , Service support ,
--- NOTE | 2019-05-06 16:44 | RAD_ITS ---
STUDY: X-RAY - UNILATERAL RIBS ( RIGHT ) WITH CHEST REASON FOR EXAM: Male, 28 years old. Posttraumatic pain TECHNIQUE - RIBS: 4 view(s) of the ribs. TECHNIQUE - CHEST: AP COMPARISON: None. FINDINGS - RIBS: Normal visualized ribs without a demonstrated fracture. FINDINGS - CHEST: Less than optimal inspiratory effort is seen with mild bibasilar atelectasis.. There is no demonstrated pleural abnormality. Normal size heart. Normal mediastinum and yumiko. Normal visualized pulmonary arteries. Normal visualized aortic arch and descending thoracic aorta. Normal visualized thoracic spine. Normal visualized ribs, clavicles, and shoulders. There is no demonstrated abnormality of the visualized soft tissue structures of the upper abdomen. RAD/Ribs Uni Min 3V w/PA Chest IMPRESSION: RIBS: Normal x-ray examination of the ribs. CHEST: Minor bibasilar atelectasis in association with diminished inspiratory effort. Electronically Signed: Mark Muhammad MD at 17:16 EDT , Service support ,
--- NOTE | 2019-05-06 17:47 | ED.VISSUMM ---
- ER Visit Summary Date of Service: 05/06/19 Chief Complaint: [Heroin overdose] History of Present Illness: The patient is a 28 M [presents to the emergency department after a heroin overdose. Patient was found by his mother upstairs on the ground. Patient did respond to her. He complains of pain to his right ribs and right hand from where he had fallen. Denies any head or neck pain. Denies abdominal pain. Denies shortness of breath. Patient does admit to using heroin today. Patient states he is used 3 times since January. He denies any alcohol use. He denies any other drug use at this time other than he occasionally uses marijuana.] Physical Examination: [HEENT-PERRLA, EOMI. Cranial nerves II through XII grossly intact. TMs clear. Mucous membranes moist. No adenopathy. No C-spine test on palpation. Normal active range of motion is painless. Cardiovascular-regular rate and rhythm without murmur or ectopy Lungs-clear to auscultation, chest wall stable without crepitus or subcu emphysema. Dilation of the chest wall reveals tenderness palpation over the right lower ribs anteriorly. Abdomen-normoactive bowel sounds, soft, nontender, no rebound or rigidity, no peritoneal signs. Extremities-intact ?4, normal range of motion, normal pulses. Right hand-patient has some erythema over the dorsal aspect of the thumb and index finger as well as first and second metacarpals. No obvious deformity. Normal active range of motion is painless. Neurovascular intact.] Test Results: [Sprays of the right ribs and chest x-ray obtained were unremarkable. Patient also had x-rays of the right hand which were normal.] Emergency Department Course and Treatment: [She was observed in the emergency department. Patient is awake and alert and following commands. Family members are with him.] Treatment Plan: [Follow-up with primary care physician in 5 to 7 days] patient advised to discontinue illicit drug use. She has recently been through a program with [facility]. Disposition: [Discharged home stable condition.] Impression: [Heroin overdose Chest wall contusion Right hand contusion] This note was generated with [employer] software. It may contain incorrect words, spelling, and punctuation that were not noted in review of the chart prior to signing ED Disposition - Plan for ED Patient: Referrals: Care Physician,No Primary [Primary Care Provider] -
--- NOTE | 2019-05-06 17:50 | ED.DEP ---
ED Disposition - Plan for ED Patient: Instructions: Drug Abuse, Opiate Abuse, Chest Wall Contusion, CONTUSION, Hand Referrals: Care Physician,No Primary [Primary Care Provider] - Be Blackwell MD [STAFF PHYSICIAN] - 5-7 Days
[2019-05-06 18:04] VITALS: BP 121/78; PULSE 91; RESP 16; O2SAT 99
== END 2019-05-06 18:08 | disposition home or self-care (01) ==
PROVIDERS: Emergency Provider Emergency Medicine
DX: T40.1X1A Poisoning by heroin, accidental (unintentional), initial encounter (principal); S20.211A Contusion of right front wall of thorax, initial encounter; S60.221A Contusion of right hand, initial encounter; W19.XXXA Unspecified fall, initial encounter; Y93.9 Activity, unspecified; Y92.9 Unspecified place or not applicable; F12.90 Cannabis use, unspecified, uncomplicated; Z72.0 Tobacco use
CPT/HCPCS: 71101; 73130; 99282; A4216

== ENCOUNTER → 2019-07-10 11:01 | Outpatient (CLI) | payer BC, MEDICAID, SELFPAY ==
[2019-07-10 09:59] VITALS: BMI 26.6
[2019-07-10 13:01] LABS: Hematocrit 46.9 % (40-54); Hemoglobin 15.8 g/dL (13.0-16.5); Mean Corp Hgb Conc 33.7 g/dL (32-36); Mean Corpuscular Volume 92.1 fL (80-94); Mean Platelet Vol. 9.5 fl (6.2-12.0); Platelet Count 176 K/mm3 (150-450); RBC Distribution Width CV 12.5 % (11.6-14.6); RBC Distribution Width SD 42.5 fl (35.1-43.9); Red Blood Count 5.09 M/mm3 (4.6-6.2); White Blood Count 6.9 K/mm3 (4.4-11.0)
[2019-07-10 13:56] LABS: ALB/GLOB Ratio 1.1 RATIO (0.9-2.4); AST(SGOT) 51 U/L (15-37); Alanine Aminotransfer ALT/SGPT 56 U/L (16-61); Albumin, Serum 3.8 g/dL (3.2-5.0); Alkaline Phosphatase 166 U/L (45-117); Anion Gap 9 (5-15); BUN 26 mg/dL (7-18); BUN/Creat Ratio 20.8 RATIO (10-20); Calcium,Total 9.1 mg/dL (8.5-10.1); Chloride 106 mmol/L (98-107); Creatinine, Serum 1.25 mg/dL (0.70-1.30); EST Glomerular Filtration Rate 72 mL/min (>60); Est Glom Filt Rate - Afr Amer 87 mL/min (>60); Globulin 3.4 g/dL (2.2-4.2); Glucose 90 mg/dL (74-106); Potassium 4.4 mmol/L (3.5-5.1); Protein, Total 7.2 g/dL (6.4-8.2); Sodium Level 142 mmol/L (136-145); Thyroid Stim Hormone (TSH) 0.91 uIU/mL (0.358-3.74)
[2019-07-10 14:04] LABS: HIV - WCH Non-Reactive (Nonreactive)
[2019-07-11 06:07] LABS: HEPATITIS B SURFACE AG Negative (Negative); Hepatitis A AB, Total Positive (Negative); Hepatitis A IgM Antibody Negative (Negative); Hepatitis B Core AB IgM Negative (Negative); Hepatitis B Core Ab Total Positive (Negative); Hepatitis C Ab >11.0 s/co ratio (0.0-0.9)
[2019-07-11 10:18] LABS: Hep B Surface Antibodies Non Reactive (.)
== END ==
LOC: EPLAB 11:01 → BIMLAB 11:10
PROVIDERS: Referring Provider Nurse Practitioner Family; Visit Provider Nurse Practitioner Family
DX: J02.9 Acute pharyngitis, unspecified (principal); F32.9 Major depressive disorder, single episode, unspecified; F41.9 Anxiety disorder, unspecified; F11.10 Opioid abuse, uncomplicated; F19.90 Other psychoactive substance use, unspecified, uncomplicated
CPT/HCPCS: 36415; 80053; 84443; 85027; 86703; 86704; 86705; 86706; 86708; 86709; 86803; 87081; 87340

== ENCOUNTER → 2019-07-23 09:18 | Outpatient (CLI) | payer BC, MEDICAID, SELFPAY ==
[2019-07-10 09:59] VITALS: BMI 26.6
[2019-07-25 03:06] LABS: HCV Quant. RNA PCR 570 IU/mL (.)
[2019-07-27 13:55] LABS: HCV log 10 2.756 (.)
== END ==
PROVIDERS: PCP Internal Medicine; Visit Provider Nurse Practitioner Family
DX: B19.20 Unspecified viral hepatitis C without hepatic coma (principal)
CPT/HCPCS: 36415; 87522

== ENCOUNTER 2019-09-16 14:16 | Emergency (ER) | payer MEDICAID, SELFPAY ==
[2019-09-14 13:26] VITALS: BMI 28.6
[2019-09-16 14:19] VITALS: BP 168/76; PULSE 148; RESP 18; TEMP 37.1; O2SAT 95; BMI 28.5
--- NOTE | 2019-09-16 14:32 | ED.DCSUM_ITS ---
- ER Visit Summary Date of Service: 09/16/19 Chief Complaint: Overdose History of Present Illness: The patient is a 28 M who presents after an apparent overdose. Patient told nursing he was using heroin. EMS found him unresponsive and he was treated with Narcan. He regained consciousness and has been alert and oriented since. Patient denies any other complaints or ingestions. Physical Examination: Tachycardic but otherwise vitals normal. Alert and oriented. No acute distress. Head and neck atraumatic. Heart tachycardic. Lungs clear. Skin appears unremarkable. Test Results: None indicated Emergency Department Course and Treatment: Patient was placed on a redye hand. Will observe in the ED for any rebound symptoms. If no issues, will recheck vitals. After about half an hour of observation, patient's heart rate is in the 120s. He is doing well otherwise. We will continue to monitor and then discharge if no other issues. Treatment Plan: As above Disposition: Discharge Impression: 1. Opioid overdose This note was generated with [employer] dictation software. It may contain incorrect words, spelling, and punctuation that were not noted in review of the chart prior to signing ED Disposition - Plan for ED Patient: Instructions: OVERDOSE, Opiate Referrals: Gerhard Peralta MD [Primary Care Provider] -
--- NOTE | 2019-09-16 14:34 | ED.DEP ---
ED Disposition - Plan for ED Patient: Instructions: OVERDOSE, Opiate Referrals: Gerhard Peralta MD [Primary Care Provider] -
[2019-09-16 15:12] VITALS: BP 131/77; PULSE 124; RESP 19; O2SAT 95
== END 2019-09-16 15:13 | disposition home or self-care (01) ==
LOC: ED 14:59
PROVIDERS: Emergency Provider Emergency Medicine; Family Provider Nurse Practitioner Family; PCP Nurse Practitioner Family
DX: T40.1X1A Poisoning by heroin, accidental (unintentional), initial encounter (principal); R40.20 Unspecified coma; Y92.9 Unspecified place or not applicable; F11.90 Opioid use, unspecified, uncomplicated; F17.200 Nicotine dependence, unspecified, uncomplicated
CPT/HCPCS: 99285; J7030

== ENCOUNTER → 2019-12-07 07:43 | Outpatient (CLI) | payer MEDICAID, SELFPAY ==
[2019-12-03 15:16] VITALS: BMI 28.8
--- NOTE | 2019-12-07 07:51 | US_ITS ---
STUDY: ABDOMINAL ULTRASOUND REASON FOR EXAM: Male, 29 years old. Hep C -- GENERAL ABD PAIN TECHNIQUE: Transabdominal ultrasound was performed with real-time and static irizarry scale imaging. TECHNICAL QUALITY: Adequate. COMPARISON: None. FINDINGS: Liver: The liver measures 16.6 cm. There is normal echogenicity of the liver. The bile ducts are within normal limits. There is hepatic color flow. The direction of portal flow is hepatopetal. There is no demonstrated mass lesion. Portal vein measurement: Gallbladder: Normal distended gallbladder. The gallbladder wall measures 2.8 mm. There is a negative sonographic Campoverde''s sign. There is no pericholecystic fluid. There are no gallstones. There is a 2 mm polyp adherent to the gallbladder wall. Common Bile Duct (C.B.D.): The common bile duct measures 3.2 mm. Pancreas: Normal size of the head, body and tail of the pancreas. There is normal echogenicity of the pancreas. There is no demonstrated pancreatic mass or cyst. Spleen: There is splenomegaly. The spleen measures 14.2 cm x 6.4 cm x 5.2 cm. Right Kidney: Normal size of the right kidney. The right kidney measures 11 cm x 7.1 cm x 4.6 cm. Normal renal cortex. The right cortex measures 1.5 cm. There is no demonstrated renal mass or cyst. There is no right hydronephrosis. Left Kidney: Normal size of the left kidney. The left kidney measures 11.1 cm x 5.1 cm x 5.2 cm. Normal renal cortex. The left cortex measures 1.9 cm. There is no demonstrated renal mass or cyst. There is no left hydronephrosis. Aorta: Unremarkable. I.V.C.: The IVC is patent. There is no ascites. US/Abdomen Complete IMPRESSION: Splenomegaly. 2 mm gallbladder polyp. Electronically Signed: Nolan Powers, at 12:30 EST , Service support ,
== END ==
PROVIDERS: PCP Nurse Practitioner Family; Visit Provider Nurse Practitioner Family
DX: B18.2 Chronic viral hepatitis C (principal)
CPT/HCPCS: 76700

== ENCOUNTER 2020-02-06 07:39 | Emergency (ER) | payer MEDICAID, SELFPAY ==
[2019-12-03 15:16] VITALS: BMI 28.8
--- NOTE | 2020-02-06 07:59 | ED.VIS.GEN ---
History of Present Illness Chief Complaint: CPR Informant: Service Shop [employer] Narrative: Patient brought in by EMS with ongoing CPR. Call reportedly went out as an overdose. Medics state patient had a pulse when they arrived on scene and gave him Narcan intranasally. Patient then became asystolic. CPR was initiated. IO was placed and patient was given second dose of Narcan. CPR was continued with 2 rounds of epinephrine. Patient was worked on scene for approximate 20 minutes prior to transport. There was no return of spontaneous pulse. On arrival to the emergency room auto pulse is still providing chest compressions. There is vomitus noted around the patient's mouth and nose. Past Medical History - Allergies and Home Meds Allergies/Adverse Reactions: Allergies Penicillins [PCN] Allergy (Verified 12/03/19 15:15) Rash Primary Care Physician: Jani Magaña NP-C [Primary Care Provider] - Prior records reviewed: Yes Past Medical History: - - Per review of records patient has history of hepatitis C and drug abuse. Surgical History: - Smoking Status: Former smoker - Family History Maternal Family History: Family History (Last Reviewed 12/03/19 @ 15:15 by Yasmine Spencer) Grandmother Heart disease Family History: Reports: - - Patient denies any market maternal or paternal family history including heart disease, diabetes, cancer. Paternal Family History: Family History (Last Reviewed 12/03/19 @ 15:15 by Yasmine Spencer) Grandmother Heart disease Family History: Reports: - - Patient denies any market maternal or paternal family history including heart disease, diabetes, cancer. Review of Systems ROS: Unable to Obtain Physical Exam General: - - Unresponsive with mild cyanosis Eyes: - - Pupils fixed ENT: - - Vomitus around patient's nose and mouth Cardiovascular: - - Auto pulse in place providing chest compressions. Extremities: - - IOL in place and lower extremity Skin: Cyanosis Neurological: - - Unresponsive Diagnostic/Tx/Re-eval - Medical Decision Making Patient had Anuj been down 20 to 30 minutes on arrival to the emergency room. Mouth was suctioned and [id number] was provided. Patient had received 2 rounds of epinephrine. Bedside ultrasound was performed with no cardiac motion noted. Time of was called at 7:43 AM. Patient's sister is present in the waiting room and is notified of his . ED Disposition - Plan for ED Patient: Disposition: Diagnosis: Cardiopulmonary arrest Referrals: Jani Magaña NP-C [Primary Care Provider] -
[2020-02-06 09:03] VITALS: TEMP -17.7; TEMP 0; BMI 27.5
== END 2020-02-06 11:41 ==
PROVIDERS: Emergency Provider Emergency Medicine; PCP Nurse Practitioner Family
DX: I46.9 Cardiac arrest, cause unspecified (principal); Z87.891 Personal history of nicotine dependence
CPT/HCPCS: 92950; 99281; A4216